=== PATIENT | female | born 1985 | race Hispanic/Latino ===

== ENCOUNTER 2018-04-04 08:11 | Outpatient (CLI) | payer OTHER, BC ==
[~2018-04-04] VITALS: Ht 162.6 cm; Wt 82.6 kg
[2018-04-04 08:31] LABS: BASOPHIL (%) 0.7 % (0-1); BASOPHIL COUNT 0.1 K/uL (0-0.1); EOSINOPHIL (%) 2.2 % (0-5); EOSINOPHIL COUNT 0.3 K/uL (0-0.3); HEMATOCRIT 36.2 % (36.0-46.0); HEMOGLOBIN 12.1 G/DL (11.9-15.5); IMMATURE GRANULOCYTE (%) 1.6 % (0.0-0.7); LYMPHOCYTE (%) 20.7 % (15-42); LYMPHOCYTE COUNT 2.5 K/uL (1.0-2.8); MCH 26.6 PG (29.0-34.0); MCHC 33.4 G/DL (30.0-36.0); MCV 79.6 FL (83-99); MONOCYTE (%) 8.1 % (3-12); NEUTROPHIL (%) 66.7 % (45-76); NEUTROPHIL COUNT 7.9 K/uL (1.8-6.4); PLATELET COUNT 261 K/uL (156-360); RBC DIS.WIDTH-CV 15.6 % (11.8-14.6); RBC DIS.WIDTH-SD 45.1 % (39-53); RED BLOOD COUNT 4.55 M/uL (3.80-5.20); WHITE BLOOD COUNT 11.9 K/uL (4.1-10.2)
[2018-04-04 08:41] LABS: AMYLASE 78 IU/L (1-118); CHLORIDE 105 mEq/L (99-109); POTASSIUM 3.6 mEq/L (3.7-5.4); SODIUM 137 mEq/L (136-147)
[2018-04-04 08:42] LABS: GLUCOSE 88 mg/dL (70-99)
[2018-04-04 08:45] LABS: SERUM ETHYL ALCOHOL < 10 mg/dL
[2018-04-04 08:46] LABS: CREATININE 0.7 mg/dL (0.6-1.3)
[2018-04-04 08:47] LABS: GFR ESTIMATE (CALCULATED) > 59 mL/min/; UREA NITROGEN (BUN) 11 mg/dL (9-23)
[2018-04-04 08:49] LABS: LIPASE 39 U/L (1.0-51.0)
[2018-04-04 09:12] LABS: QUANTITATIVE HCG 18402.2 MIU/ML
[2018-04-04 09:48] LABS: APPEARANCE CLOUDY ((CLEAR)); BILIRUBIN NEGATIVE; BLOOD MODERATE; COLOR YELLOW ((YELLOW)); GLUCOSE (STRIP) NEGATIVE; KETONES NEGATIVE; LEUKOCYTES NEGATIVE; NITRITE NEGATIVE; PROTEIN (STRIP) NEGATIVE; SPECIFIC GRAVITY 1.003 (1.000-1.030); UROBILINOGEN 0.2 MG/DL (0.2-1.0)
[2018-04-04 09:56] VITALS: BP 112/68
[2018-04-04 09:56] LABS: BACTERIA RARE /HPF; EPITHELIAL CELLS 3+ /HPF; MUCUS NONE SEEN /LPF; RED BLOOD CELLS 0-5 /HPF (0-5); UCUL ADDED? NO; WHITE BLOOD CELLS 0-5 /HPF (0-5)
[2018-04-04 09:57] LABS: AMPHETAMINE NEGATIVE (500 ng/mL); BARBITURATES NEGATIVE (200 ng/mL); BENZODIAZEPINES NEGATIVE (150 ng/mL); BUPRENORPHINE NEGATIVE (10 ng/mL); COCAINE NEGATIVE (150 ng/mL); METHADONE NEGATIVE (200 ng/mL); METHAMPHETAMINE NEGATIVE (500 ng/mL); OPIATES (MORPHINE) NEGATIVE (100 ng/mL); OXYCODONE NEGATIVE (100 ng/mL); PHENCYCLIDINE NEGATIVE (25 ng/mL); PROPOXYPHENE NEGATIVE (300 ng/mL); THC CANNABINOIDS NEGATIVE (50 ng/mL); TRICYCLIC ANTIDEPRESSANTS NEGATIVE (300 ng/mL)
[2018-04-04] MEDS ORDERED: PRENATAL TABLE1 EAC3 PO (10:35)
[2018-04-04 12:06] VITALS: BP 103/56
== END 2018-04-04 14:45 | disposition home or self-care (01) ==
LOC: LDRP-OP 08:11 → TRA 08:11 → 2WEST 09:40 → EDSTATUS 09:45 → 2WEST 14:45
PROVIDERS: Emergency Medicine
DX: O9A.213 Injury, poisoning and certain other consequences of external causes complicating pregnancy, third trimester (principal); S60.212A Contusion of left wrist, initial encounter; R10.9 Unspecified abdominal pain; O99.013 Anemia complicating pregnancy, third trimester; D64.9 Anemia, unspecified; O24.419 Gestational diabetes mellitus in pregnancy, unspecified control; O34.219 Maternal care for unspecified type scar from previous cesarean delivery; V49.88XA Car occupant (driver) (passenger) injured in other specified transport accidents, initial encounter; Z3A.28 28 weeks gestation of pregnancy; Y92.410 Unspecified street and highway as the place of occurrence of the external cause
CPT/HCPCS: 59025; 73110; 76805; 80048; 81003; 82150; 83690; 84702; 85025; 85460; 86850; 86900; 86901; 99281; 99285; G0378; G0480

== ENCOUNTER 2018-06-15 06:37 | Inpatient (IN) | payer BC ==
[2018-06-15] VITALS (9 sets, daily range): BP systolic 107–126; BP diastolic 57–74
[~2018-06-15] VITALS: Ht 157.5 cm; Wt 84.0 kg
[~2018-06-15 06:37] MED LIST: IRON325 M1 PO; PRENATAL TABLE1 EAC3 PO
[2018-06-15 07:25] LABS: BASOPHIL (%) 0.7 % (0-1); BASOPHIL COUNT 0.1 K/uL (0-0.1); EOSINOPHIL (%) 2.2 % (0-5); EOSINOPHIL COUNT 0.2 K/uL (0-0.3); HEMATOCRIT 38.8 % (36.0-46.0); HEMOGLOBIN 13.1 G/DL (11.9-15.5); IMMATURE GRANULOCYTE (%) 0.5 % (0.0-0.7); LYMPHOCYTE (%) 27.7 % (15-42); LYMPHOCYTE COUNT 2.6 K/uL (1.0-2.8); MCH 26.4 PG (29.0-34.0); MCHC 33.8 G/DL (30.0-36.0); MCV 78.1 FL (83-99); MONOCYTE (%) 7.8 % (3-12); MONOCYTE COUNT 0.7 K/uL (0-0.8); NEUTROPHIL (%) 61.1 % (45-76); NEUTROPHIL COUNT 5.7 K/uL (1.8-6.4); PLATELET COUNT 266 K/uL (156-360); RBC DIS.WIDTH-CV 15.4 % (11.8-14.6); RBC DIS.WIDTH-SD 43.2 % (39-53); RED BLOOD COUNT 4.97 M/uL (3.80-5.20); WHITE BLOOD COUNT 9.4 K/uL (4.1-10.2)
[2018-06-15 08:08] LABS: AMPHETAMINE NEGATIVE (500 ng/mL); BARBITURATES NEGATIVE (200 ng/mL); BENZODIAZEPINES NEGATIVE (150 ng/mL); BUPRENORPHINE NEGATIVE (10 ng/mL); COCAINE NEGATIVE (150 ng/mL); METHADONE NEGATIVE (200 ng/mL); METHAMPHETAMINE NEGATIVE (500 ng/mL); OPIATES (MORPHINE) NEGATIVE (100 ng/mL); OXYCODONE NEGATIVE (100 ng/mL); PHENCYCLIDINE NEGATIVE (25 ng/mL); PROPOXYPHENE NEGATIVE (300 ng/mL); THC CANNABINOIDS NEGATIVE (50 ng/mL); TRICYCLIC ANTIDEPRESSANTS NEGATIVE (300 ng/mL)
[2018-06-15] MEDS ORDERED: MOTRIN800 MG PO (10:25)
[2018-06-15] MEDS ORDERED: PERCOCET 5/31 TABLET PO (10:25)
[2018-06-16 05:58] LABS: BASOPHIL (%) 0.6 % (0-1); BASOPHIL COUNT 0.1 K/uL (0-0.1); EOSINOPHIL (%) 1.2 % (0-5); EOSINOPHIL COUNT 0.1 K/uL (0-0.3); HEMATOCRIT 29.1 % (36.0-46.0); IMMATURE GRANULOCYTE (%) 0.5 % (0.0-0.7); LYMPHOCYTE (%) 13.8 % (15-42); LYMPHOCYTE COUNT 1.7 K/uL (1.0-2.8); MCH 26.4 PG (29.0-34.0); MCHC 32.6 G/DL (30.0-36.0); MCV 80.8 FL (83-99); MONOCYTE (%) 8.3 % (3-12); NEUTROPHIL (%) 75.6 % (45-76); NEUTROPHIL COUNT 9.1 K/uL (1.8-6.4); PLATELET COUNT 208 K/uL (156-360); RBC DIS.WIDTH-CV 15.7 % (11.8-14.6); RBC DIS.WIDTH-SD 45.8 % (39-53); WHITE BLOOD COUNT 12.1 K/uL (4.1-10.2)
[2018-06-16 05:59] LABS: HEMOGLOBIN 9.5 G/DL (11.9-15.5)
[2018-06-16 07:02] VITALS: BP 108/65
[2018-06-16 10:40] VITALS: BP 104/51
[2018-06-16 15:10] VITALS: BP 106/55
[2018-06-16 19:17] VITALS: BP 101/56
[2018-06-16 22:12] VITALS: BP 104/56
[2018-06-17 03:06] VITALS: BP 125/64
[2018-06-17 07:08] VITALS: BP 107/58
== END 2018-06-17 14:44 | disposition home or self-care (01) | DRG 766 ==
LOC: 2WEST 06:37 → 2SOUTH 11:14 → 2WEST 06-17 14:44
PROVIDERS: Obstetrics & Gynecology
PROC: 0UB70ZZ Excision of Bilateral Fallopian Tubes, Open Approach (ICD-10-PCS; principal; 2018-06-15)
PROC: 10D00Z1 Extraction of Products of Conception, Low, Open Approach (ICD-10-PCS; principal; 2018-06-15)
DX: O44.03 Complete placenta previa NOS or without hemorrhage, third trimester (principal); O34.211 Maternal care for low transverse scar from previous cesarean delivery; O24.420 Gestational diabetes mellitus in childbirth, diet controlled; Z3A.39 39 weeks gestation of pregnancy; Z37.0 Single live birth; Z30.2 Encounter for sterilization; E66.9 Obesity, unspecified; Z68.33 Body mass index [BMI] 33.0-33.9, adult
CPT/HCPCS: 36415; 82948; 85025; 86850; 86900; 86901; 88302; J0690; J2270; J2274; J2405; J3010; J7120; J7643; S0020